=== PATIENT | male | born 1985 | race Caucasian/White ===

== ENCOUNTER 2016-11-05 11:54 | Emergency (ER) | payer SELFPAY ==
[~2016-11-05] VITALS: Ht 190.5 cm; Wt 81.7 kg
[2016-11-05] MEDS ORDERED: KEPPRA1000 MG PO (12:07)
[2016-11-05] MEDS ORDERED: DILANTIN100 MG PO (12:07)
== END 2016-11-05 12:12 | disposition home or self-care (01) ==
LOC: ED 11:54
DX: Z00.8 Encounter for other general examination (principal)